=== PATIENT | female | born 1975 | race Caucasian/White ===

== ENCOUNTER 2018-02-24 23:39 | Emergency (ER) | payer OTHER, MEDICAID ==
--- NOTE | 2018-02-24 23:49 | EDPHY ---
H & P Time Seen by Provider: 02/24/18 23:47 HPI/ROS: HPI CHIEF COMPLAINT: M1 hold, suicidal ideation HISTORY OF PRESENT ILLNESS: Patient is a very pleasant 42-year-old female, presents emergency room history of generalized anxiety disorder, major depressive disorder, presents emergency room on M1 hold. She is here with worsening depression, suicide ideation. Past Medical History: History of generalized anxiety disorder, major depressive disorder, oxygen dependent 3 L. Hypertension, thyroid disease Past Surgical History: No recent surgery Social History: Denies drugs alcohol tobacco. Family History: Noncontributory ROS REVIEW OF SYSTEMS: 10 Systems were reviewed and negative with the exception of the elements mentioned in the history of present illness. Exam Constitutional nontoxic no acute distress, triage nursing summary reviewed, vital signs reviewed, awake/alert. Eyes normal conjunctivae and sclera, EOMI, PERRLA. HENT normal inspection, atraumatic, moist mucus membranes, no epistaxis, neck supple/ no meningismus, no raccoon eyes. Respiratory clear to auscultation bilaterally, normal breath sounds, no respiratory distress, no wheezing. Cardiovascular rate normal, regular rhythm, no murmur, no edema, distal pulses normal. Gastrointestinal soft, non-tender, no rebound, no guarding, normal bowel sounds, no distension, no pulsatile mass. Genitourinary no CVA tenderness. Musculoskeletal no midline vertebral tenderness, full range of motion, no calf swelling, no tenderness of extremities, no meningismus, good pulses, neurovascularly intact. Skin pink, warm, & dry, no rash, skin atraumatic. Neurologic awake, alert and oriented x 3, AAOx3, moves all 4 extremities equally, motor intact, sensory intact, CN II-XII intact, normal cerebellar, normal vision, normal speech. Psychiatric flat affect, depressed Heme/Lymph/Immune no lymphadenopathy. Differential Diagnosis: Includes but is not limited to in a particular order major depressive disorder, bipolar disorder, mood disorder, worsening depression , suicidal ideation. Medical Decision Making: Plan for this patient blood draw for medical clearance. Once medically cleared patient can be evaluated by mental health. Re-evaluation: [id number]: This patient has been accepted at [facility]. Dr. Cazares. EMTALA form is filled out. Appropriate transfer be set up. Source: Patient, EMS Constitutional: Initial Vital Signs Temperature (C) 36.3 C 02/24/18 23:45 Heart Rate 74 02/24/18 23:45 Respiratory Rate 16 02/24/18 23:45 Blood Pressure 178/121 H 02/24/18 23:45 O2 Sat (%) 100 02/24/18 23:45 O2 Delivery Mode Nasal Cannula O2 (L/minute) 3 Allergies/Adverse Reactions: cephalexin [From Keflex] Allergy (Verified 02/25/18 00:19) citalopram [From Celexa] Allergy (Verified 02/25/18 00:19) NSAIDS (Non-Steroidal Anti-Inflamma Allergy (Verified 02/25/18 00:19) Penicillins Allergy (Verified 02/25/18 00:19) sulfamethoxazole [From Bactrim] Allergy (Verified 02/25/18 00:19) triamterene Allergy (Verified 02/25/18 00:19) trimethoprim [From Bactrim] Allergy (Verified 02/25/18 00:19) Home Medications: Medication Instructions Recorded Amlodipine Besylate 02/25/18 CLONAZEPAM 02/25/18 Cetirizine 02/25/18 Gabapentin 02/25/18 Levothyroxine 02/25/18 Metoprolol Succinate 02/25/18 PRISTIQ 02/25/18 Prazosin HCl 02/25/18 Ranitidine HCl 02/25/18 Medical Decision Making - Data Points Laboratory Results: Laboratory Results 02/25/18 01:49 02/25/18 00:53 02/25/18 02/25/18 02/25/18 01:49 00:53 00:53 WBC 10.60 10^3/uL H 10^3/uL (3.80-9.50) RBC 4.33 10^6/uL 10^6/uL (4.18-5.33) Hgb 12.0 g/dL L g/dL (12.6-16.3) Hct 38.1 % % (38.0-47.0) MCV 88.0 fL fL (81.5-99.8) MCH 27.7 pg L pg (27.9-34.1) MCHC 31.5 g/dL L g/dL (32.4-36.7) RDW 14.3 % % (11.5-15.2) Plt Count 215 10^3/uL 10^3/uL (150-400) MPV 11.1 fL fL (8.7-11.7) Neut % (Auto) 66.0 % % (39.3-74.2) Lymph % (Auto) 27.6 % % (15.0-45.0) Barton % (Auto) 5.0 % % (4.5-13.0) Eos % (Auto) 0.4 % L % (0.6-7.6) Baso % (Auto) 0.5 % % (0.3-1.7) Nucleat RBC Rel Count 0.0 % % (0.0-0.2) Absolute Neuts (auto) 7.00 10^3/uL H 10^3/uL (1.70-6.50) Absolute Lymphs (auto) 2.93 10^3/uL 10^3/uL (1.00-3.00) Absolute Monos (auto) 0.53 10^3/uL 10^3/uL (0.30-0.80) Absolute Eos (auto) 0.04 10^3/uL 10^3/uL (0.03-0.40) Absolute Basos (auto) 0.05 10^3/uL 10^3/uL (0.02-0.10) Absolute Nucleated RBC 0.00 10^3/uL 10^3/uL (0-0.01) Immature Gran % 0.5 % % (0.0-1.1) Immature Gran # 0.05 10^3/uL 10^3/uL (0.00-0.10) Sodium 141 mEq/L mEq/L (135-145) Potassium 4.0 mEq/L mEq/L (3.3-5.0) Chloride 104 mEq/L mEq/L (97-110) Carbon Dioxide 22 mEq/l mEq/l (22-31) Anion Gap 15 mEq/L mEq/L (8-16) BUN 9 mg/dL mg/dL (7-23) Creatinine 0.9 mg/dL mg/dL (0.6-1.0) Estimated GFR > 60 Glucose 104 mg/dL H mg/dL (70-100) Calcium 9.5 mg/dL mg/dL (8.5-10.4) TSH 30.400 uIU/mL H uIU/mL (0.465-4.680) Beta HCG, Qual NEGATIVE Urine Opiates Screen Urine Barbiturates Ur Phencyclidine Scrn Ur Amphetamine Screen U Benzodiazepines Scrn Urine Cocaine Screen U Marijuana (THC) Screen Ethyl Alcohol < 10 mg/dL mg/dL (0-10) 02/25/18 02/25/18 00:53 00:30 WBC REJ RBC REJ Hgb REJ Hct REJ MCV REJ MCH REJ MCHC REJ RDW REJ Plt Count REJ MPV REJ Neut % (Auto) REJ Lymph % (Auto) REJ Barton % (Auto) REJ Eos % (Auto) REJ Baso % (Auto) REJ Nucleat RBC Rel Count REJ Absolute Neuts (auto) REJ Absolute Lymphs (auto) REJ Absolute Monos (auto) REJ Absolute Eos (auto) REJ Absolute Basos (auto) REJ Absolute Nucleated RBC REJ Immature Gran % REJ Immature Gran # REJ Sodium Potassium Chloride Carbon Dioxide Anion Gap BUN Creatinine Estimated GFR Glucose Calcium TSH Beta HCG, Qual Urine Opiates Screen NEGATIVE (NEGATIVE) Urine Barbiturates NEGATIVE (NEGATIVE) Ur Phencyclidine Scrn NEGATIVE (NEGATIVE) Ur Amphetamine Screen NEGATIVE (NEGATIVE) U Benzodiazepines Scrn NEGATIVE (NEGATIVE) Urine Cocaine Screen NEGATIVE (NEGATIVE) U Marijuana (THC) Screen NEGATIVE (NEGATIVE) Ethyl Alcohol Medications Given: Discontinued Medications Amlodipine Besylate (Norvasc) 10 mg PO EDNOW ONE Stop: 02/25/18 01:25 Last Admin: 02/25/18 02:21 Dose: 10 mg Cetirizine HCl (Zyrtec) 10 mg PO EDNOW ONE Stop: 02/25/18 01:25 Last Admin: 02/25/18 03:07 Dose: 10 mg Clonazepam (Klonopin) 2 mg PO EDNOW ONE Stop: 02/25/18 01:25 Last Admin: 02/25/18 02:22 Dose: 2 mg Gabapentin (Neurontin) 900 mg PO EDNOW ONE Stop: 02/25/18 01:26 Last Admin: 02/25/18 02:22 Dose: 900 mg Metoprolol Tartrate (Lopressor) 12.5 mg PO EDNOW ONE Stop: 02/25/18 01:27 Last Admin: 02/25/18 02:22 Dose: 12.5 mg Prazosin HCl (Minipress) 5 mg PO EDNOW ONE Stop: 02/25/18 01:28 Last Admin: 09/30/18 03:07 Dose: 5 mg Ranitidine HCl (Zantac) 300 mg PO EDNOW ONE Stop: 02/25/18 03:01 Last Admin: 02/25/18 03:07 Dose: 300 mg Departure - Departure Disposition: Acute Care Hospital [facility] Clinical Impression: Suicidal ideation, Severe major depression Condition: Fair Referrals: Patient,NotPresent [Unknown] - As per Instructions
[2018-02-25] MEDS ORDERED: clonazePAM 1 MG TAB PO ONE (01:24)
[2018-02-25] MEDS ORDERED: amLODIPine BESYLATE 5 MG TAB PO ONE (01:24)
[2018-02-25] MEDS ORDERED: CETIRIZINE 10 MG TAB PO ONE (01:24)
[2018-02-25] MEDS ORDERED: GABAPENTIN 300 MG CAP PO ONE ×2 (01:25→09:59)
[2018-02-25] MEDS ORDERED: METOPROLOL TARTRATE 25 MG TAB PO ONE (01:26)
[2018-02-25] MEDS ORDERED: PRAZOSIN HCL 5 MG CAP PO ONE (01:27)
[2018-02-25] MEDS ORDERED: RANITIDINE SYRUP 15 MG/1 ML UDSYR PO ONE (01:28)
[2018-02-25 01:59] LABS: PLATELET COUNT 215 10^3/uL (150-400)
[2018-02-25] MEDS ORDERED: RANITIDINE HCL 150 MG/10 ML UDCUP PO ONE (03:00)
[2018-02-25] MEDS ORDERED: GABAPENTIN 250 MG/5 ML 30 ML BOTTLE PO ONE (09:32)
[2018-02-25] MEDS ORDERED: PRAZOSIN HCL 5 MG CAP PO SCH (09:45)
[2018-02-25] MEDS ORDERED: GABAPENTIN 300 MG CAP ONE (09:53)
[2018-02-25] MEDS ORDERED: LEVOTHYROXINE 75 MCG TAB PO SCH (10:00)
[2018-02-25] MEDS ORDERED: PANTOPRAZOLE SODIUM 40 MG TAB PO ONE (10:08)
[2018-02-25 13:23] VITALS: BP 130/85
== END 2018-02-25 13:38 | disposition short-term general hospital (02) ==
LOC: EEVIPCON 23:39
DX: R45.851 Suicidal ideations (principal); F32.2 Major depressive disorder, single episode, severe without psychotic features
CPT/HCPCS: 80305; G0480